=== PATIENT | female | born 1960 | race Caucasian/White ===

== ENCOUNTER → 2019-09-04 | Outpatient (CLI) | payer OTHER ==
[2019-09-04 08:13] LABS: BASO % 1 % (0-3); EOS # 0.1 x10^3/uL (0.0-0.7); EOS % 2 % (0-3); HEMATOCRIT 40.3 % (36.0-47.0); HEMOGLOBIN 13.5 g/dL (12.0-15.5); LYMPH # 1.9 x10^3/uL (1.0-4.8); LYMPH % 34 % (24-48); MEAN CORPUSCULAR HEMOGLOBIN 27 pg (25-35); MEAN CORPUSCULAR HGB CONC 33 g/dL (31-37); MEAN CORPUSCULAR VOLUME 82 fL (79-100); MONO # 0.5 x10^3/uL (0.0-1.1); MONO % 9 % (0-9); NEUT # 3.2 x10^3/uL (1.8-7.7); NEUT % 55 % (31-73); PLATELET COUNT 239 x10^3/uL (140-400); RED BLOOD COUNT 4.93 x10^6/uL (3.50-5.40); RED CELL DISTRIBUTION WIDTH 13.9 % (11.5-14.5); WHITE BLOOD COUNT 5.7 x10^3/uL (4.0-11.0)
[2019-09-04 08:32] LABS: ALBUMIN 3.4 g/dL (3.4-5.0); ALBUMIN/GLOBULIN RATIO 0.9 (1.0-1.7); CALCIUM 8.6 mg/dL (8.5-10.1); CHOLESTEROL/HDL RATIO 2.7; CREATININE 1.1 mg/dL (0.6-1.0); GFR 50.7; POTASSIUM 3.4 mmol/L (3.5-5.1); TOTAL BILIRUBIN 0.7 mg/dL (0.2-1.0)
[2019-09-05 01:08] LABS: HEMOGLOBIN A1C 5.8 % (4.8-5.6)
== END ==
LOC: LAB 07:53
PROVIDERS: ATTEND Family Medicine
DX: Z13.9 Encounter for screening, unspecified (principal)
CPT/HCPCS: 36415; 80053; 80061; 83036; 85025

== ENCOUNTER → 2019-09-12 | Outpatient (CLI) | payer OTHER ==
--- NOTE | 2019-09-13 16:06 | RAD ---
BILATERAL SCREENING MAMMOGRAM, 3-D History: Routine screening. Comparison: None. Attempts to obtain outside exams for comparison were unsuccessful. Technique: MLO and CC digital tomosynthesis (3D) images obtained. Radiologist reviewed these images on dedicated workstation. Findings: Breast Tissue Density B : There are scattered areas of fibroglandular density. There are no dominant masses, suspicious microcalcifications, or architectural distortion. Asymmetry involving the right outer mid breast is noted on the CC projection probably related to summation of breast parenchyma. A focal asymmetry measuring up to 0.4 cm diameter is present 3 cm deep from the nipple at the upper outer left breast. A small well circumscribed mass at the left upper outer breast 5 cm from the nipple is present measuring 0.4 cm diameter. IMPRESSION: Bilateral spot compression is recommended. BILATERALLY MAY BE NEEDED. BI-RADS Category 0: Incomplete: Need additional imaging evaluation. The images were reviewed with computer-aided detection. Patient information is entered into reminder system with a target due date for the next screening mammogram. Mammography is the most sensitive method for finding small breast cancers, but it does not detect them all and is not a substitute for careful clinical examination. A negative mammogram does not negate a clinically suspicious finding and should not result in delay in biopsying a clinically suspicious abnormality. "Our facility is accredited by the [employer] Mammography [employer]." Electronically signed by: Kayden Kelly MD (09/13/2019 4:03 PM) [facility]
== END | disposition home or self-care (01) ==
LOC: MAMMO 09:28
PROVIDERS: ATTEND Family Medicine
DX: Z12.31 Encounter for screening mammogram for malignant neoplasm of breast (principal); N63.21 Unspecified lump in the left breast, upper outer quadrant
CPT/HCPCS: 77063; 77067

== ENCOUNTER → 2019-09-21 | Outpatient (CLI) | payer OTHER ==
--- NOTE | 2019-09-21 14:40 | RAD ---
EXAM: 1. BILATERAL DIGITAL DIAGNOSTIC MAMMOGRAPHY. 2. BILATERAL BREAST ULTRASOUND. HISTORY: Indeterminate findings on mammographic screening. Additional imaging is requested. TECHNIQUE: Bilateral full field digital images were obtained in CC and MLO projections with spot compression. Computer-aided detection was applied. Sonography of both upper outer breast was also performed. COMPARISON: 03/14/2019. COMPOSITION: C. The breasts are heterogeneously dense, which may obscure small masses. FINDINGS: On the right, there is no clear underlying mammographic abnormality in the region of asymmetric parenchyma superolaterally. Vascular calcifications are benign. Sonography of the right upper outer breast reveals dense parenchyma and a few mildly dilated ducts. There is no suspicious sonographic finding. On the left, no underlying mammographic abnormalities appreciated in the region of dense parenchyma superolaterally. A small nodule superficially persists and appears circumscribed and benign. Sonography of the left upper outer breast reveals a 4 x 3 mm cyst at the 1:00 position 2 cm from the nipple. Another measures 4 x 3 mm at the 3:00 position 2 cm from the nipple. There is no suspicious sonographic finding. BI-RADS CATEGORY 2: Benign. RECOMMENDATION: 1. Routine screening mammography in one year. If mammography demonstrates dense breast tissue (heterogenously dense or extremely dense, category C or D), which could hide abnormalities, and if other risk factors for breast cancer have been identified, supplemental screening tests that may be suggested by the ordering physician may be of benefit. Dense breast tissue, in and of itself, is a relatively common condition. Therefore, this information is not provided to cause undue concern, but rather to raise awareness and to promote discussion with the referring physician regarding the presence of other risk factors, in addition to dense breast tissue. The results of this mammography examination is provided to the patient and referring physician. The patient should contact their referring physician if any questions or concerns exist regarding this report. PQRS compliance statement - Patient information was entered into a reminder system with a target due date for the next mammogram. "Our facility is accredited by the [employer] Mammography [employer]." Electronically signed by: Dimitry Black MD (09/21/2019 2:36 PM) [id number]
== END | disposition home or self-care (01) ==
LOC: MAMMO 12:50
PROVIDERS: ATTEND Family Medicine
DX: R92.1 Mammographic calcification found on diagnostic imaging of breast (principal); N63.21 Unspecified lump in the left breast, upper outer quadrant; N60.02 Solitary cyst of left breast
CPT/HCPCS: 77066; 76641-50

== ENCOUNTER → 2019-12-01 | Outpatient (CLI) | payer OTHER ==
[2019-12-01 08:30] LABS: CALCIUM 8.8 mg/dL (8.5-10.1); CREATININE 1.1 mg/dL (0.6-1.0); GFR 50.5; POTASSIUM 3.4 mmol/L (3.5-5.1)
== END | disposition home or self-care (01) ==
LOC: LAB 07:26
PROVIDERS: ATTEND Family Medicine
DX: E78.2 Mixed hyperlipidemia (principal)
CPT/HCPCS: 36415; 80048; 80061

== ENCOUNTER → 2021-02-06 | Outpatient (CLI) | payer OTHER ==
[2021-02-06 08:53] LABS: ALBUMIN/GLOBULIN RATIO 0.9 (1.0-1.7); CALCIUM 8.5 mg/dL (8.5-10.1); CREATININE 0.8 mg/dL (0.6-1.0); GFR 72.7; POTASSIUM 3.5 mmol/L (3.5-5.1); TOTAL BILIRUBIN 0.7 mg/dL (0.2-1.0); TOTAL PROTEIN 6.2 g/dL (6.4-8.2)
[2021-02-06 08:57] LABS: CHOLESTEROL/HDL RATIO 2.5
[2021-02-07 01:14] LABS: HEMOGLOBIN A1C 6.2 % (4.8-5.6)
== END ==
LOC: LAB 07:34
PROVIDERS: ATTEND Family Medicine
DX: Z13.9 Encounter for screening, unspecified (principal); E78.2 Mixed hyperlipidemia; R73.09 Other abnormal glucose
CPT/HCPCS: 36415; 80053; 80061; 83036

== ENCOUNTER → 2021-02-12 | Day surgery (SDC) | payer OTHER ==
[~2021-02-12] VITALS: Ht 157.5 cm; Wt 69.0 kg
[~2021-02-12] MED LIST: HYDROmorphone 2 MG/ML VIAL IVP PRN; IV RINGERS,LACTATED 1000ML 1,000 ML IV SCH; MORPHINE SULFATE 2 MG/ML INJ. IVP PRN; PROCHLORPERAZINE 10 MG/2 ML VIAL. IVP PRN; PROPOFOL 10 MG/ML (20ML) VIAL. IV ONE; fentaNYL PF VIAL 100 MCG/2 ML VIAL IVP PRN
[2021-02-12 07:45] VITALS: BP 125/60
[2021-02-12 09:22] VITALS: BP 127/71
--- NOTE | 2021-02-14 17:09 | PATHOLOGY ---
[facility] Accession Number: [id number] . 01 Material submitted: . gastrointestinal site - GASTRIC BODY POLYP . 01 Clinical history: . +COLOGUARD, GERD EGD, COLONOSCOPY . 02 Diagnosis: Gastric biopsy, gastric body polyp: - Hyperplastic polyp, chronically inflamed. (JPM:ravi; 02/14/2021) S 02/14/2021 0908 Local . 02 Comment: Sections of the gastric biopsy reveal a polypoid segment of gastric antral mucosa showing congestion, foveolar hyperplasia, and chronic inflammation. The findings are supportive of the diagnosis of a hyperplastic polyp. There are no adenomatous changes or evidence of malignancy. (JPM:ravi; 02/14/2021) . 02 Electronically signed: . Leroy Min MD, Pathologist NPI- [id number] . 01 Gross description: . The specimen is received in formalin, labeled "Huerta, Lexie, gastric body polyp" and consists of a brown polypoid tissue measuring 1.2 x 1.0 x 0.7 cm. The specimen is serially sectioned and submitted entirely in A1.([place]; 02/13/2021) DKA/DKA 02/13/2021 1245 Local . 02 Pathologist provided ICD-10: K31.7 . 02 CPT . 124169 Specimen Comment: A courtesy copy of this report has been sent to [phone], [phone] Specimen Comment: [id number] Specimen Comment: Report sent to / DR ALEXANDER Specimen Comment: A duplicate report has been generated due to demographic updates. Performed at: [address], [place], [place] [id number] MD Joao Day MD Phone: [phone] Performed at: 02 [facility] [address] [place], [place] [id number] MD Leroy Min MD Phone: [phone]
== END | disposition home or self-care (01) ==
LOC: ENDOS 07:17
PROVIDERS: ATTEND Internal Medicine Gastroenterology
DX: R19.5 Other fecal abnormalities (principal); K64.0 First degree hemorrhoids; K31.7 Polyp of stomach and duodenum; R19.8 Other specified symptoms and signs involving the digestive system and abdomen; K21.9 Gastro-esophageal reflux disease without esophagitis; Z98.84 Bariatric surgery status; Z90.710 Acquired absence of both cervix and uterus; Z98.890 Other specified postprocedural states; Z79.899 Other long term (current) drug therapy
CPT/HCPCS: 43251; 45378; 88305; J2704; 43255